=== PATIENT | male | born 2000 | race Caucasian/White ===

== ENCOUNTER 2019-02-11 11:27 | Emergency (ER) | payer BC, OTHER ==
[~2019-02-11] VITALS: Ht 180.3 cm; Wt 66.8 kg
[2019-02-11 11:44] VITALS: BP 126/86
[2019-02-11] MEDS ORDERED: ACET1TAB55 PO (11:44)
[2019-02-11] MEDS ORDERED: IBUP-1022 PO (12:01)
[2019-02-11] MEDS ORDERED: LIDO1SOL8 PO (12:01)
== END 2019-02-11 12:08 | disposition home or self-care (01) ==
LOC: M ED 11:27
DX: J02.9 Acute pharyngitis, unspecified (principal); Z88.0 Allergy status to penicillin

== ENCOUNTER 2019-02-25 17:27 | Emergency (ER) | payer BC, OTHER ==
[~2019-02-25] VITALS: Ht 180.3 cm; Wt 65.9 kg
[~2019-02-25 17:27] MED LIST: ACET1TAB55 PO; IBUP-1022 PO; LIDO1SOL8 PO
--- NOTE | 2019-02-25 18:21 | REP ---
Chest x-ray: Two views. History: Abdominal pain . Comparison study: July 25, 2009 . Findings: The lungs are well inflated and free of infiltrate. The pleural angles are sharp. The heart size is normal. Pulmonary vasculature is not increased. No significant bony abnormality is seen. Impression: Negative chest x-ray. Electronically Signed by Christian Santos MD 02/25/2019 06:11 P
[2019-02-25 18:29] LABS: BASO # 0.1 10^3/uL (0.0-0.2); BASO % 0.6 % (0.0-1.0); EOS # 0.2 10^3/uL (0.0-0.50); HEMATOCRIT 49.9 % (42.0-52.0); HEMOGLOBIN 16.2 g/dl (13.5-17.5); LYMPH # 1.8 10^3/uL (1.5-6.5); LYMPH % 18.9 % (24.0-44.0); MEAN CORPUSCULAR HEMOGLOBIN 27.9 pg (27.0-33.0); MEAN CORPUSCULAR HGB CONC 32.5 g/dl (32.0-36.5); MONO # 0.7 10^3/uL (0.0-0.8); MONO % 7.1 % (0.0-5.0); NEUTROPHILS # 6.8 10^3/uL (1.8-7.7); NEUTROPHILS % 70.9 % (36.0-66.0); PLATELET COUNT, AUTOMATED 318 10^3/uL (150-450); WHITE BLOOD COUNT 9.6 10^3/uL (4.0-10.0)
[2019-02-25 18:43] LABS: ALBUMIN 4.6 GM/DL (3.2-5.2); ALT/SGPT 23 U/L (12-78); AMYLASE 81 U/L (25-115); BILIRUBIN,DIRECT 0.2 MG/DL (0.0-0.2); BLOOD UREA NITROGEN 7 MG/DL (7-18); CALCIUM LEVEL 9.6 MG/DL (8.5-10.1); CARBON DIOXIDE LEVEL 26 MEQ/L (21-32); CHLORIDE LEVEL 107 MEQ/L (98-107); CREATININE FOR GFR 0.95 MG/DL (0.70-1.30); GLOMERULAR FILTRATION RATE > 60.0 (>60); GLUCOSE, FASTING 91 MG/DL (70-100); LIPASE 109 U/L (73-393); SODIUM LEVEL 140 MEQ/L (136-145); TOTAL PROTEIN 7.9 GM/DL (6.4-8.2)
[2019-02-25 18:46] LABS: MONO SCRN NEGATIVE (NEGATIVE)
[2019-02-25 18:53] LABS: INFLUENZA A AMPLIFICATION NEGATIVE (NEGATIVE); INFLUENZA B AMPLIFICATION NEGATIVE (NEGATIVE)
[2019-02-25] MEDS ORDERED: ZITHTAB PO (19:03)
[2019-02-25] MEDS ORDERED: TESS100C PO (19:06)
[2019-02-25 19:08] VITALS: BP 118/57
== END 2019-02-25 19:15 | disposition home or self-care (01) ==
LOC: M ED 17:27
DX: J06.9 Acute upper respiratory infection, unspecified (principal); Z88.0 Allergy status to penicillin